=== PATIENT | male | born 1965 | race Caucasian/White ===

== ENCOUNTER 2018-04-16 06:30 | Inpatient (IN) | payer MEDICAID ==
[~2018-04-16] VITALS: Ht 591.1 cm; Wt 89.1 kg
[2018-04-16] VITALS (12 sets, daily range): BP systolic 117–136; BP diastolic 80–96
[~2018-04-16 06:30] MED LIST: Hydrocodone Bit/Acetaminophen PO; LISI40TA4 PO; TADA5TAB2 PO
[2018-04-16] MEDS ORDERED: aspirin 81mg tab.chew PO ONE (06:50)
[2018-04-16] MEDS ORDERED: FURO-150 PO (07:07)
[2018-04-16] MEDS ORDERED: APIX5TAB3 PO (07:07)
[2018-04-16] MEDS ORDERED: ASPI81TA52 PO (07:07)
[2018-04-16] MEDS ORDERED: CARV-50 PO (07:07)
[2018-04-16] MEDS ORDERED: SPIR25TA5 PO (07:07)
[2018-04-16] MEDS ORDERED: LISI40TA4 PO (07:07)
[2018-04-16 07:15] LABS: BASOPHILS # (AUTO) 0.1 X10'3 (0-0.2); BASOPHILS % (AUTO) 1.7 % (0-1); EOSINOPHILS # (AUTO) 0.2 X10'3 (0-0.9); EOSINOPHILS % (AUTO) 2.4 % (0-6); HEMATOCRIT 42.7 % (42.0-52.0); HEMOGLOBIN 14.4 g/dl (14.0-17.9); LYMPHOCYTES # (AUTO) 2.4 X10'3 (1.1-4.8); LYMPHOCYTES % (AUTO) 33.6 % (21-51); MEAN CORPUSCULAR HEMOGLOBIN 30.3 PG (27.0-31.0); MEAN CORPUSCULAR HGB CONC 33.8 % (33.0-36.5); MEAN CORPUSCULAR VOLUME 89.6 FL (78-98); MONOCYTES # (AUTO) 0.6 X10'3 (0-0.9); MONOCYTES % (AUTO) 8.7 % (2-12); NEUTROPHILS # (AUTO) 3.8 X10'3 (1.8-7.7); NEUTROPHILS % (AUTO) 53.6 % (42-75); PLATELET COUNT 278 X10'3 (140-440); RED BLOOD COUNT 4.77 X10'6 (4.70-6.10); RED CELL DISTRIBUTION WIDTH 14.7 % (11.5-14.5); WHITE BLOOD COUNT 7.1 X10'3 (4.5-11.0)
[2018-04-16 07:28] LABS: D-DIMER 0.67 MG/L FEU (0-0.50); PARTIAL THROMBOPLASTIN TIME 28 SECONDS (22-32); PROTHROMBIN TIME 10.6 SECONDS (9.0-12.0)
[2018-04-16 07:30] LABS: ALANINE AMINOTRANSFERASE 28 U/L (12-78); ALBUMIN/GLOBULIN RATIO 0.9 (1.1-1.5); ALKALINE PHOSPHATASE 72 IU/L (46-116); ANION GAP 8 (8-16); ASPARTATE AMINO TRANSFERASE 19 U/L (10-37); BILIRUBIN,TOTAL 0.9 MG/DL (0.1-1.0); BLOOD UREA NITROGEN 11 MG/DL (7-18); BUN/CREATININE RATIO 8.7 (5.4-32.0); CALCIUM 8.2 MG/DL (8.5-10.1); CHLORIDE 108 MMOL/L (99-107); CREATININE 1.27 MG/DL (0.60-1.10); GLUCOSE 155 MG/DL (70-104); POTASSIUM 3.2 MMOL/L (3.5-5.1); SODIUM 141 MMOL/L (135-145); TOTAL CARBON DIOXIDE 25.2 MMOL/L (24-32); TOTAL PROTEIN 6.2 G/DL (6.4-8.2); eGFR 59 ML/MIN
[2018-04-16 07:39] LABS: MAGNESIUM 1.8 MG/DL (1.5-2.4)
[2018-04-16] MEDS ORDERED: potassium Cl 20 mEq SR tablet PO ONE (08:10)
[2018-04-16] MEDS ORDERED: iohexol 350MG/ML 100ml bottle IV ONE (08:54)
[2018-04-16] MEDS ORDERED: magnesium hydroxide 30ml (MOM) UD suspension PO PRN (09:50)
[2018-04-16] MEDS ORDERED: magnesium 1gm/100ml D5W IVPB 100 ML IV PRN (09:50)
[2018-04-16] MEDS ORDERED: HYDROcodone/acetaminophen 10/325mg tab PO PRN (09:50)
[2018-04-16] MEDS ORDERED: potassium Cl 20 mEq SR tablet PO PRN ×2 (09:50)
[2018-04-16] MEDS ORDERED: potassium Cl 40MEQ/NS 500ml 500 ML IV PRN ×2 (09:50)
[2018-04-16] MEDS ORDERED: ondansetron/PF 4mg/2ml inj IV PRN (09:50)
[2018-04-16] MEDS: K and/or MAG REPLACEMENT MC SCH (09:50)
[2018-04-16] MEDS ORDERED: nitroGLYCERIN 0.4mg SUBLingual tab SL PRN (09:50)
[2018-04-16] MEDS ORDERED: acetaminophen 325mg tablet PO PRN ×2 (09:50)
[2018-04-16] MEDS ORDERED: magnesium Cl slow-release 64mg tablet PO PRN (09:50)
[2018-04-16] MEDS ORDERED: magnesium 4gm in 100ml NS 100 ML IV PRN (09:50)
[2018-04-16] MEDS ORDERED: mag hydrox/Alum hydrox/simeth 30ml oral suspension PO PRN (09:50)
[2018-04-16] MEDS ORDERED: regadenoson 0.4mg/5ml syringe IV ONE ×2 (09:50→15:06)
[2018-04-16] MEDS ORDERED: metoprolol tartrate 1mg/ml inj IV PRN (09:50)
[2018-04-16] MEDS ORDERED: HYDROcodone/acetaminophen 5mg/325mg tablet PO PRN (09:50)
[2018-04-16] MEDS ORDERED: CAFFEINE CITRATE 60 MG/3 ML injection vial IV PRN (09:50)
[2018-04-16] MEDS ORDERED: morphine 4 MG/ML inj SYRINge IV ONE (10:05)
[2018-04-16] MEDS ORDERED: nitroGLYCERIN 0.4mg SUBLingual tab SL ONE (10:11)
[2018-04-16] MEDS ORDERED: furosemide 10 MG/1 ML 10ml inj IV ONE (10:15)
[2018-04-16 10:22] LABS: URINE AMPHETAMINE SCREEN POSITIVE (Neg); URINE BARBITUATE SCREEN NEGATIVE (Neg); URINE BENZODIAZEPINES SCREEN NEGATIVE (Neg); URINE CANNABINOID SCREEN POSITIVE (Neg); URINE COCAINE SCREEN NEGATIVE (Neg); URINE METHADONE SCREEN NEGATIVE (Neg); URINE OPIATE SCREEN NEGATIVE (Neg); URINE PHENCYCLIDINE SCREEN NEGATIVE (Neg)
[2018-04-16] MEDS: nitroGLYCERIN 0.4mg SUBLingual tab SL PRN ×2 (12:08→18:29)
[2018-04-16] MEDS ORDERED: morphine 4 MG/ML inj SYRINge IV PRN (12:35)
[2018-04-16] MEDS: morphine 4 MG/ML inj SYRINge IV PRN ×2 (12:44→18:29)
[2018-04-16] MEDS ORDERED: CAFFEINE CITRATE 60 MG/3 ML injection vial IV ONE (15:07)
[2018-04-16] MEDS: furosemide 40mg/4ml inj IV SCH (19:41)
[2018-04-16] MEDS: apixaban 5mg tablet PO SCH (19:41)
[2018-04-16] MEDS ORDERED: carVEDilol 3.125mg tablet PO SCH (20:00)
[2018-04-16] MEDS ORDERED: temazepam 15mg capsule PO PRN (21:00)
[2018-04-17] MEDS: morphine 4 MG/ML inj SYRINge IV PRN (01:45)
[2018-04-17 02:00] VITALS: BP 112/83
[2018-04-17 05:39] LABS: HEMATOCRIT 45.1 % (42.0-52.0); HEMOGLOBIN 15.3 g/dl (14.0-17.9); MEAN CORPUSCULAR HEMOGLOBIN 30.3 PG (27.0-31.0); MEAN CORPUSCULAR VOLUME 89.3 FL (78-98); MEAN PLATELET VOLUME 8.1 FL (7.4-10.4); PLATELET COUNT 299 X10'3 (140-440); RED BLOOD COUNT 5.05 X10'6 (4.70-6.10); RED CELL DISTRIBUTION WIDTH 14.6 % (11.5-14.5); WHITE BLOOD COUNT 8.6 X10'3 (4.5-11.0)
[2018-04-17 05:53] LABS: ALBUMIN 3.3 G/DL (3.4-5.0); ANION GAP 6 (8-16); BLOOD UREA NITROGEN 14 MG/DL (7-18); BUN/CREATININE RATIO 11.5 (5.4-32.0); CALCIUM 8.7 MG/DL (8.5-10.1); CHLORIDE 101 MMOL/L (99-107); CHOL/HDL RATIO 3.8 (0.00-4.99); CHOLESTEROL 148 MG/DL (0-200); CREATININE 1.22 MG/DL (0.60-1.10); GLUCOSE 137 MG/DL (70-104); HDL CHOLESTEROL 39 MG/DL (35-60); LDL CHOLESTEROL 97 MG/DL (50-100); MAGNESIUM 1.9 MG/DL (1.5-2.4); POTASSIUM 3.6 MMOL/L (3.5-5.1); SODIUM 138 MMOL/L (135-145); TOTAL CARBON DIOXIDE 30.6 MMOL/L (24-32); TRIGLYCERIDES 114 MG/DL (20-135); eGFR 62 ML/MIN
[2018-04-17 06:00] VITALS: BP 126/99
[2018-04-17] MEDS ORDERED: potassium Cl 20 mEq SR tablet PO STA (07:19)
[2018-04-17] MEDS: furosemide 40mg/4ml inj IV SCH (07:53)
[2018-04-17] MEDS: apixaban 5mg tablet PO SCH (07:53)
[2018-04-17] MEDS ORDERED: enoxaparin 40mg/0.4ml syringe SUBCUT SCH (08:00)
[2018-04-17] MEDS: K and/or MAG REPLACEMENT MC SCH (08:00)
[2018-04-17] MEDS ORDERED: spironolactone 25 MG tablet PO SCH (08:00)
[2018-04-17] MEDS ORDERED: lisinopril 5mg tablet PO SCH ×2 (08:00→21:00)
[2018-04-17] MEDS ORDERED: carVEDilol 12.5mg tablet PO SCH (08:00)
[2018-04-17] MEDS ORDERED: aspirin 325mg tablet PO SCH (08:30)
[2018-04-17 11:00] VITALS: BP 100/70
[2018-04-17] MEDS ORDERED: FURO-150 PO (12:58)
[2018-04-17] MEDS ORDERED: CARV-50 PO (12:58)
[2018-04-17] MEDS ORDERED: LEVO500T2 PO (13:09)
[2018-04-17] MEDS ORDERED: FURO-149 PO (15:09)
== END 2018-04-17 15:40 | disposition home or self-care (01) | DRG 812 ==
LOC: ER 06:31 → ED HOLD 09:47 → PCU 3S 11:00 → CMPBEDREQ 19:31
PROVIDERS: ADMIT Family Medicine; ATTEND Internal Medicine
PROC: B3201ZZ Computerized Tomography (CT Scan) of Thoracic Aorta using Low Osmolar Contrast (ICD-10-PCS; principal; 2018-04-16)
PROC: 4A02XM4 Measurement of Cardiac Total Activity, External Approach (ICD-10-PCS; 2018-04-16)
PROC: 3E073KZ Introduction of Other Diagnostic Substance into Coronary Artery, Percutaneous Approach (ICD-10-PCS; 2018-04-16)
DX: T43.621A Poisoning by amphetamines, accidental (unintentional), initial encounter (principal); I50.23 Acute on chronic systolic (congestive) heart failure; J18.9 Pneumonia, unspecified organism; I11.0 Hypertensive heart disease with heart failure; I42.7 Cardiomyopathy due to drug and external agent; I08.1 Rheumatic disorders of both mitral and tricuspid valves; Z79.01 Long term (current) use of anticoagulants; B19.20 Unspecified viral hepatitis C without hepatic coma; F15.10 Other stimulant abuse, uncomplicated; E87.6 Hypokalemia; F41.1 Generalized anxiety disorder; F90.9 Attention-deficit hyperactivity disorder, unspecified type; J98.11 Atelectasis; F12.90 Cannabis use, unspecified, uncomplicated; R00.0 Tachycardia, unspecified; Z59.0 Homelessness; Z90.49 Acquired absence of other specified parts of digestive tract; Z91.14 Patient's other noncompliance with medication regimen; Z79.899 Other long term (current) drug therapy; Z79.82 Long term (current) use of aspirin; Z71.51 Drug abuse counseling and surveillance of drug abuser; Y92.89 Other specified places as the place of occurrence of the external cause
CPT/HCPCS: 36415; 71045; 71275; 78452; 80048; 80053; 80061; 80305; 83735; 83880; 84484; 85025; 85027; 85379; 85610; 85730; 93005; 93017; 93306; 99285; A6449; A9500; J1940; J2270; J7030; Q9967